=== PATIENT | female | born 1945 | race Two or more races ===

== ENCOUNTER 2017-06-22 15:09 | Emergency (ER) | payer BC, OTHER ==
[~2017-06-22] VITALS: Ht 162.6 cm; Wt 65.8 kg
[2017-06-22 16:09] LABS: Basophils # (auto) 0.1 uL; Eosinophils # (auto) 0.1 uL; Lymphocytes # (auto) 2.7 uL; Nucleated Red Blood Cells % 0.1 %; Red Cell Distribution Width 13.3 % (11.8-14.3)
[2017-06-22 16:10] LABS: Basophils % (auto) 0.6 % (0.0-2.0); Eosinophils % (auto) 1.2 % (0.0-7.0); Hematocrit 51.9 % (36.0-46.0); Hemoglobin 17.8 g/dL (12.2-16.2); Lymphocytes % (auto) 25.3 % (10.0-50.0); Mean Corpuscular Hemoglobin 34.6 pg (28.0-32.0); Mean Corpuscular Hgb Conc. 34.4 g/dL (32.0-36.0); Mean Corpuscular Volume 100.5 fL (80.0-100.0); Monocytes # (auto) 0.6 uL; Neutrophils # (auto) 7.1 uL; Neutrophils % (auto) 66.9 % (37.0-80.0); Platelet Count (auto) 228 10^3/uL (140-450); White Blood Cell 10.6 10^3/uL (4.4-10.8)
[2017-06-22] MEDS ORDERED: hydrALAZINE HCL 20 MG/ML VL IV ONE (16:15)
[2017-06-22 16:44] LABS: Potassium 3.6 mmol/L (3.5-5.1)
[2017-06-22 16:45] LABS: Albumin 3.6 g/dL (3.4-5.0); Bilirubin, Total 0.5 mg/dL (0.2-1.0); Calcium 8.6 mg/dL (8.5-10.1); Total Protein 7.4 g/dL (6.4-8.2)
[2017-06-22 19:35] VITALS: BP 154/63
== END 2017-06-22 20:06 | disposition short-term general hospital (02) ==
LOC: ER 15:17
DX: S01.01XA Laceration without foreign body of scalp, initial encounter (principal); R56.9 Unspecified convulsions; I10 Essential (primary) hypertension; F17.210 Nicotine dependence, cigarettes, uncomplicated; Z88.0 Allergy status to penicillin; W18.39XA Other fall on same level, initial encounter; Y93.01 Activity, walking, marching and hiking; Y92.512 Supermarket, store or market as the place of occurrence of the external cause; Y99.8 Other external cause status
CPT/HCPCS: 12001; 36415; 70450; 72125; 80053; 85025; 94761; 96374; 99285; J0360